=== PATIENT | female | born 1990 | race Caucasian/White ===

== ENCOUNTER 2018-01-26 22:18 | Emergency (ER) | payer BC, OTHER ==
[~2018-01-26] VITALS: Ht 172.7 cm; Wt 63.5 kg
[2018-01-26 22:22] VITALS: BP 120/72
--- NOTE | 2018-01-26 22:42 | ER.PDOC ---
General Chief Complaint: Sore Throat Stated Complaint: POSS STREPP Time seen by MD: 22:39 Source: patient Exam Limitations: no limitations History of Present Illness Initial Comments 27 year old white female with cough, runny nose and sore throat since this am. Low grade fever, no chills. No chest pain. Not on meds Timing/Duration: abrupt Severity: moderate Associated Symptoms: fever/chills, earache, runny nose, sinus pain/drainage, sore throat, hoarseness Allergies: Coded Allergies: No Known Allergies (Unverified , 01/26/18) Home Meds No Active Prescriptions or Reported Meds Constitutional: see HPI EENTM: see HPI Respiratory: see HPI Cardiovascular: no symptoms reported Gastrointestinal: no symptoms reported Genitourinary: no symptoms reported Musculoskeletal: no symptoms reported Skin: no symptoms reported Psychiatric/Neurological: no symptoms reported Hematologic/Lymphatic: no symptoms reported Past Medical History Medical History: no pertinent history Surgical History: no surgical history LMP (females 10-50): 3 weeks Social History Smoking: non-smoker Alcohol Use: none Drug Use: none Physical Exam General Appearance: alert, no distress Eye: eyes nml inspection, PERRL, no nystagmus Ear: ear nml Nose: mucosal edema Throat: pharynx nml, pharyngeal erythema Neck: nml inspection, supple Respiratory: no resp.distress, breath sounds nml Abdomen: no organomegaly CVS: reg rate & rhythm, heart sounds nml Skin: color nml, no rash, warm/dry Extremities: non-tender, nml ROM, no pedal edema NEURO/PSYCH: oriented x 3, CN's nml as tested, motor nml, sensation nml, mood/ affect nml Results/Orders Results/Orders Laboratory Tests Test 01/26/18 22:51 Influenza Type A Antigen Pending Influenza B Immunofluorescence Pending Group A Streptococcus Screen POSITIVE (NEGATIVE) Departure Time of Disposition: 23:12 Disposition: 01 HOME, SELF-CARE Impression: Primary Impression: Streptococcal pharyngitis Condition: Stable Referrals: PCP,UNKNOWN (PCP) PRIMARY CARE PROVIDER Scripts No Active Prescriptions or Reported Meds Comments OTC Naproxen prn Warm saline gargle Follow up PCP RTER prn Tramadol prn Duration or Time Spent with Pa: 30 MAAME BARRETT MD Jan 26, 2018 22:42
--- NOTE | 2018-01-26 22:45 | NUR ---
FLU/STREP SWABS OBTAINED AND SENT TO LAB
[2018-01-26 23:10] LABS: STREP SCREEN POSITIVE (NEGATIVE)
[2018-01-26] MEDS ORDERED: BICILLIN L-A IM STA (23:11)
[2018-01-26 23:12] VITALS: BP 105/65
[2018-01-26] MEDS ORDERED: BICILLIN L-A IM ONE (23:12)
[2018-01-26] MEDS ORDERED: TYLENOL #3 PO STA (23:14)
[2018-01-26] MEDS ORDERED: NAPROXEN PO STA (23:14)
[2018-01-26] MEDS ORDERED: NAPROXEN PO ONE (23:14)
[2018-01-26] MEDS ORDERED: TYLENOL #3 PO ONE (23:15)
[2018-01-27 00:16] VITALS: BP 105/65
== END 2018-01-26 23:35 | disposition home or self-care (01) ==
LOC: ER 22:18
DX: J02.0 Streptococcal pharyngitis (principal)
CPT/HCPCS: 86710 ×2; 87880; 96372; 99283; J0561; J3490